=== PATIENT | male | born 1970 ===

== ENCOUNTER 2020-06-13 09:49 | Outpatient (CLI) | payer BC, SELFPAY | END 2020-06-13 09:50 | disposition home or self-care (01) | LOC: ANHCOVIDVC 09:49 | DX: Z23 Encounter for immunization (principal) | CPT/HCPCS: 0001A; 91300 ==

== ENCOUNTER 2020-07-04 09:45 | Outpatient (CLI) | payer BC, SELFPAY | END 2020-07-04 09:46 | disposition home or self-care (01) | LOC: ANHCOVIDVC 09:45 | DX: Z23 Encounter for immunization (principal) | CPT/HCPCS: 0002A; 91300 ==